=== PATIENT | female | born 1990 | race Caucasian/White ===

== ENCOUNTER 2022-01-23 15:08 | Emergency (ER) | payer OTHER | END 2022-01-23 16:00 | disposition left against medical advice (07) | LOC: ER1 15:08 | DX: M25.511 Pain in right shoulder (principal); F17.210 Nicotine dependence, cigarettes, uncomplicated; I10 Essential (primary) hypertension; V49.9XXA Car occupant (driver) (passenger) injured in unspecified traffic accident, initial encounter | CPT/HCPCS: 99282 ==